=== PATIENT | female | born 1995 | race Caucasian/White ===

== ENCOUNTER 2016-11-06 12:44 | Emergency (ER) | payer OTHER ==
[~2016-11-06] VITALS: Ht 165.1 cm; Wt 77.1 kg
--- NOTE | 2016-11-06 14:27 | ED GI/GU/ABDOMINAL COMPLAINT ---
History of Present Illness General Chief Complaint: General Adult Stated Complaint: KIDNEY PAIN Source: patient, old records Exam Limitations: no limitations Vital Signs & Intake/Output Vital Signs & Intake/Output Vital Signs Date Time Temp Pulse Resp B/P Pulse O2 O2 Flow FiO2 Ox Delivery Rate 11/06 1630 97.5 76 18 130/80 96 Room Air Room Air 11/06 1250 97.5 78 18 133/83 95 Room Air Allergies Coded Allergies: Penicillins (Severe, ANAPHYLAXIS 11/06/16) Reconcile Medications Ciprofloxacin HCl (Cipro) 500 MG TABLET 1 TAB PO BID uti Ondansetron (Zofran Odt) 4 MG TAB.RAPDIS 1 TAB SL TID PRN nausea Oxycodone HCl/Acetaminophen (Percocet 5-325 MG Tablet) 5 MG-325 MG TABLET 1 TAB PO BID PRN pain Triage Note: 21 Y/O STATES SHE HAS HX KIDNEY STONES AND PAIN IS SIMILIAR; "I PASSSED A STONE YESTERDAY BUT I STILL HAVE PAIN". ALSO REPORTS "ODOR" TO URINE AND CONCERNED THERE IS AN INFECTION. +HEMATURIA PER PT. URINE REQUESTED. Triage Nurses Notes Reviewed? yes LMP (ages 10-50): unknown ? N Is pt currently ? No Onset: Abrupt Duration: day(s): (3), constant Timing: recent history Quality/Severity: aching, sharpness Severity Numbers: 7 Location: right flank Radiation: no radiation Activities at Onset: none Prior Abdominal Problems: similar symptoms (KIDNEY STONES) No Modifying Factors: none Associated Symptoms: DYSRURIA, HEMATURIA HPI: 21-year-old female presents emergency room for evaluation complaining of a three -day history of right flank pain associated with hematuria dysuria since today. She states that she did pass a kidney stone earlier. She has a history of kidney stones that have passed on their own in the past. She denies any abdominal pain vaginal bleeding or spotting. The patient is unaware of her last menstrual cycle, she denies nausea vomiting diarrhea. She is not sought care for the symptoms until today there are no modifying factors or associated symptoms otherwise. She denies recent fall trauma or heavy lifting there is no pain going down her leg there are no modifying factors or associated symptoms otherwise no chest pain no shortness of breath the pain is not worse with inspiration. (CASSIE JACINTO,MARYA) Past History Travel History Traveled to [place] past 21 day No Medical History Any Pertinent Medical History? see below for history Neurological: NONE EENT: NONE Cardiovascular: NONE Respiratory: NONE Gastrointestinal: NONE Hepatic: NONE Renal: nephrolithiasis Musculoskeletal: NONE Psychiatric: NONE Endocrine: NONE Blood Disorders: NONE Cancer(s): NONE GOLD MINER BLASTING/Reproductive: NONE Surgical History Surgical History: none Psychosocial History What is your primary language Palauan Tobacco Use: Current Daily Use Daily Tobacco Use Amount/Type: =< 4 Cigarettes daily Family History Hx Contributory? No (MARYA PATINO) Review of Systems Review of Systems Constitutional: Reports: see HPI. All Other Systems: Reviewed and Negative Comments Review of systems: See HPI, All other systems negative. Constitutional, no chills no fever, no malaise HEENT: No visual changes no sore throat no congestion Cardiovascular: No chest pain , no palpitation Skin, no jaundice no rashes, no change in skin Respiratory: No dyspnea no cough no sputum n GI: No nausea no vomiting, no diarrhea, : see hpi Muscle skeletal: No joint pain, no joint swelling, no back pain Neurologic: No numbness n no headache Psych: No stress Heme/endocrine: No bruising no bleeding Immunology: No lymphadenopathy (MARYA PATINO) Physical Exam Physical Exam General Appearance: well developed/nourished, no apparent distress, alert, awake , comfortable Gastrointestinal: normal bowel sounds, soft, non-tender Comments: Well-developed well-nourished person in no acute distress HEENT: Normal EENT exam; PERRL, EOMI, HEAD is atraumatic. moist mucous membranes. Neck: Supple, normal range of motion Back: Nontender, no CVA tenderness. Full range of motion Cardiovascular: Regular rate and rhythms no murmurs rubs Respiratory: No respiratory distress. Patient speaking in full complete sentences. Breath sounds clear to auscultation bilaterally: NO W/R/R Abdomen: Soft, nontender nondistended, no appreciable organomegaly. Normal bowel sounds. No rebound/guarding,No ascites. Extremity: No edema, full range of motion of extremities Neuro: Alert oriented x3, motor sensory normal,There were no obvious focal neurologic abnormalities. Skin: No appreciable rash on exposed skin, skin is warm and dry. Psych: Mood and affect is normal, memory and judgment is normal. Core Measures ACS in differential dx? No Severe Sepsis Present: No Septic Shock Present: No (MARYA PATINO) Progress Differential Diagnosis: ectopic , gastritis, inflamm bowel dis, intrauterine , kidney stone, PID/cervicitis, perforated viscous, SBO, threatened AB, UTI/pyelo, muscle strai, cauda equina Plan of Care: Orders Procedure Date/time Status Add-on Test (ER Only) 11/06 1455 Active CULTURE,URINE 11/06 1252 Active URINE 11/06 1252 Complete URINALYSIS 11/06 1252 Complete Laboratory Tests 11/06/16 1430: Urine Color YEL, Urine Clarity HAZY H, Urine pH 6.0, Ur Specific [place] 1.025, Urine Protein NEG, Urine Ketones NEG, Urine Nitrite POS H, Urine Bilirubin NEG, Urine Urobilinogen 0.2, Ur Leukocyte Esterase SMALL H, Ur Microscopic SEDIMENT EXAMINED, Urine RBC RARE, Urine WBC 5-10 H, Ur Epithelial Cells MOD H, Urine Hemoglobin TRACE-INTACT, Urine Glucose NEG, Urine Test NEGATIVE Microbiology 11/06 125 URINE ROUT: Urine Culture - RECD Labs ordered old records reviewed patient medicated Percocet, Zofran ultrasound ordered Discussed the patient at length all of her lab results and ultrasound findings need for close follow-up with primary care. Prescription for Cipro Zofran Percocet provided advised to return anytime sooner symptoms worsen she feels coupled with plan answered all her questions cleared for discharge (CASSIE JACINTO,MARYA) Diagnostic Imaging: Viewed by Me: Ultrasound. Discussed w/RAD: Ultrasound. Radiology Impression: PATIENT: EMELY MCELROY PRESENT AGE: 21 PATIENT ACCOUNT NO: [id number] : 93 LOCATION: [facility] ORDERING PHYSICIAN: MARYA JACINTO SERVICE DATE: 11/06/16 EXAM TYPE: US - US- RENAL/KIDNEY EXAMINATION: US RETROPERITONEAL COMPLETE (RENAL) CLINICAL INFORMATION: Right flank pain. Hematuria.. COMPARISON: None TECHNIQUE: Real-time imaging of the kidneys and bladder. Color Doppler exam utilized. FINDINGS: RIGHT KIDNEY: 10.1 x 4.2 x 5.2 cm (SAG x AP x TRV). The kidney is normal in size, contour, and echogenicity. Renal cortical thickness is normal. No calculi or focal parenchymal lesions. No hydronephrosis. LEFT KIDNEY: 10 x 5.6 x 4.7 cm ( SAG x AP x TRV). The kidney is normal in size, contour, and echogenicity. Renal cortical thickness is normal. No calculi or focal parenchymal lesions. No hydronephrosis. BLADDER: Bladder partially filled. Ureteral jets are not demonstrated. IMPRESSION: Normal ultrasound of kidneys.. DICTATED BY: JUSTICE LYNN MD DATE/TIME DICTATED:11/06/161533 BLOWER BLAST FURNACE:ARIADNE DATE/TIME TRANSCRIBED:11/06/161533 CONFIDENTIAL, DO NOT COPY WITHOUT APPROPRIATE AUTHORIZATION. <Electronically signed in Other Vendor System> SIGNED BY: JUSTICE LYNN MD 11/06/16 1540 Initial ED EKG: none (MARYA PATINO) Departure Departure Time of Disposition: 1601 Disposition: HOME OR SELF CARE Condition: Stable Clinical Impression Primary Impression: UTI (urinary tract infection) Referrals: YONATHAN MORENO DO PATIENT HAS NO PRIMARY CARE DR (PCP/Family) Additional Instructions: FOLLOW UP WITH PMD DR MORENO. CIPRO DIRECTED, ZOFRAN NEEDED FOR NAUSEA. Percocet for breakthrough pain use caution as this is a narcotic and highly addictive no driving or drinking alcohol while taking. These prescriptions were sent to your pharmacy Departure Forms: Customer Survey General Discharge Information Prescriptions: Current Visit Scripts Oxycodone HCl/Acetaminophen (Percocet 5-325 MG Tablet) 1 TAB PO BID PRN pain #8 TAB Ondansetron (Zofran Odt) 1 TAB SL TID PRN nausea #10 TAB Ciprofloxacin HCl (Cipro) 1 TAB PO BID #14 TAB (MARYA PATINO) PA/CARBIDER Co-Sign Statement Statement: ED Attending supervision documentation- [] I saw and evaluated the patient. I have also reviewed all the pertinent lab results and diagnostic results. I agree with the findings and the plan of care as documented in the PA's/CARBIDER's documentation. [X] I have reviewed the ED Record and agree with the PA's/CARBIDER's documentation. [] Additions or exceptions (if any) to the PAs/CARBIDER's note and plan are summarized below: [] (MAICO ROMERO DO
--- NOTE | 2016-11-06 15:40 | ULTRASOUND REPORT ---
EXAMINATION: US RETROPERITONEAL COMPLETE (RENAL) CLINICAL INFORMATION: Right flank pain. Hematuria.. COMPARISON: None TECHNIQUE: Real-time imaging of the kidneys and bladder. Color Doppler exam utilized. FINDINGS: RIGHT KIDNEY: 10.1 x 4.2 x 5.2 cm (SAG x AP x TRV). The kidney is normal in size, contour, and echogenicity. Renal cortical thickness is normal. No calculi or focal parenchymal lesions. No hydronephrosis. LEFT KIDNEY: 10 x 5.6 x 4.7 cm (SAG x AP x TRV). The kidney is normal in size, contour, and echogenicity. Renal cortical thickness is normal. No calculi or focal parenchymal lesions. No hydronephrosis. BLADDER: Bladder partially filled. Ureteral jets are not demonstrated. IMPRESSION: Normal ultrasound of kidneys..
[2016-11-06] MEDS ORDERED: ZOFRAN ODT4 M1 SL (16:03)
[2016-11-06] MEDS ORDERED: CIPRO500 M1 PO (16:03)
[2016-11-06] MEDS ORDERED: PERCOCET 5-3251 EACH PO (16:03)
[2016-11-06 16:30] VITALS: BP 130/80
== END 2016-11-06 16:32 ==
LOC: ERH 12:44
DX: N39.0 Urinary tract infection, site not specified (principal)
CPT/HCPCS: 76775; 81001; 81025; 87086; J3101